=== PATIENT | female | born 1995 | race Native Hawaiian/Other Pacific Islander ===

== ENCOUNTER 2018-01-03 14:45 | Emergency (ER) | payer OTHER ==
[~2018-01-03] VITALS: Ht 154.9 cm; Wt 65.8 kg
[~2018-01-03 14:45] MED LIST: CIPRO500 MG PO; DIFLUCAN50 MG PO; FLUC150T PO; PROZAC10 MG PO; PYRIDIUM100 MG PO; TGT OMEPRAZOLE20 MG PO
== END 2018-01-03 17:54 | disposition home or self-care (01) ==
LOC: ED 14:45
DX: S20.211A Contusion of right front wall of thorax, initial encounter (principal); S20.212A Contusion of left front wall of thorax, initial encounter; S29.9XXA Unspecified injury of thorax, initial encounter; V43.53XA Car driver injured in collision with pick-up truck in traffic accident, initial encounter
CPT/HCPCS: 81000; 81025; 99283

== ENCOUNTER 2020-10-24 13:26 | Emergency (ER) | payer OTHER ==
[~2020-10-24] VITALS: Ht 154.9 cm; Wt 90.7 kg
[2020-10-24 13:30] VITALS: TEMP 98.4
[2020-10-24 14:24] LABS: PLATELET COUNT 236 K/uL (152-353)
[2020-10-24 14:33] LABS: POTASSIUM 3.7 mmol/L (3.6-5.2); SODIUM 138 mmol/L (136-145)
[2020-10-24 15:43] VITALS: BP 107/69
== END 2020-10-24 15:44 | disposition home or self-care (01) ==
LOC: ED 13:26
PROVIDERS: Family Medicine
DX: R07.89 Other chest pain (principal); F41.8 Other specified anxiety disorders; M79.18 Myalgia, other site
CPT/HCPCS: 36415; 80053; 81000; 81025; 84484; 85027; 85379; 93005; 99283; J2405